=== PATIENT | female | born 1960 | race Caucasian/White ===

== ENCOUNTER 2019-12-08 16:32 | Inpatient (IN) | payer OTHER ==
[~2019-12-08] VITALS: Ht 160 cm; Wt 100.4 kg
[2019-12-08 16:40] VITALS: BP 204/116
[2019-12-08 17:13] LABS: URINE BLOOD 3+ (Negative); URINE CLARITY CLOUDY; URINE COLOR YELLOW; URINE GLUCOSE-RANDOM NEGATIVE (Negative); URINE KETONES NEGATIVE (Negative); URINE NITRITE-REFLEX NEGATIVE (Negative); URINE PROTEIN TRACE (Negative); URINE SPECIFIC GRAVITY >= 1.030 (1.005-1.030); URINE UROBILINOGEN 0.2 E.U./dl (0.2-1.0)
[2019-12-08 17:22] LABS: ICTOTEST (BILI CONFIRMATORY) Negative (Negative); URINE BILIRUBIN 1+ (Negative); URINE LEUKOCYTES-REFLEX 2+ (Negative)
[2019-12-08 17:22] LABS: ABSOLUTE BASOPHILS 0.1 thou/uL (0.0-0.2); ABSOLUTE EOSINOPHILS 0.1 thou/uL (0.0-0.7); ABSOLUTE LYMPHOCYTES 2.2 thou/uL (0.8-5.3); ABSOLUTE MONOCYTES 0.5 thou/uL (0.0-1.2); ABSOLUTE NEUTROPHILS 8.5 thou/uL (1.6-8.1); EOSINOPHILS 0.8 %; HEMATOCRIT 42.4 % (37.0-47.0); HEMOGLOBIN 14.3 gm/dL (12.0-15.0); LYMPHOCYTES 18.9 %; MCH 27.7 pg (26.0-34.0); MCHC 33.8 g/dL (28.0-37.0); MCV 82.1 fL (80.0-100.0); MONOCYTES 4.7 %; MPV 7.7 fl. (7.2-11.1); NUCLEATED RBCS 0 /100WBC; PLATELET COUNT* 276 thou/uL (150-400); POLYS 74.6 %; RBC 5.17 mil/uL (4.20-5.00); RDW-CV 13.9 % (10.5-14.5); WBC 11.4 thou/uL (4.0-11.0)
[2019-12-08 17:25] LABS: SQUAMOUS 4-10 Moderate /LPF (0-3); TRANSITIONAL EPITHEL CELL 4-10 Moderate /LPF (None Seen)
[2019-12-08 17:26] LABS: BACTERIA-REFLEX >30 Many /HPF (None Seen); CASTS None Seen /LPF (None Seen); CRYSTALS None Seen /LPF (None Seen); URINE RBC 3-10 Few /HPF (0-2); URINE WBC-REFLEX >25 Many /HPF (0-5)
[2019-12-08 17:33] LABS: CALCIUM 8.4 mg/dL (8.5-10.1); CREATININE 0.9 mg/dL (0.6-1.3); POTASSIUM 3.4 mmol/L (3.5-5.1)
[2019-12-08 17:34] LABS: APTT 27.3 Seconds (25.0-31.3); PROTIME 10.4 Seconds (9.20-11.50)
[2019-12-08 17:44] LABS: ALBUMIN 3.1 g/dL (3.4-5.0); TOTAL BILIRUBIN 0.6 mg/dL (<0.1-1.0); TOTAL PROTEIN 6.6 g/dL (6.4-8.2)
[2019-12-08 21:32] VITALS: BP 161/87
[2019-12-08 21:35] VITALS: BP 146/94
[2019-12-09] VITALS: BP 149/94
[2019-12-09 04:00] VITALS: BP 121/82
[2019-12-09 05:10] LABS: HEMATOCRIT 32.2 % (37.0-47.0); MCH 28.2 pg (26.0-34.0); MCHC 34.1 g/dL (28.0-37.0); MCV 82.5 fL (80.0-100.0); MPV 7.4 fl. (7.2-11.1); RBC 3.91 mil/uL (4.20-5.00); RDW-CV 13.7 % (10.5-14.5); WBC 11.6 thou/uL (4.0-11.0)
[2019-12-09 05:22] LABS: PROTIME 10.7 Seconds (9.20-11.50)
[2019-12-09 05:30] LABS: ALBUMIN 2.6 g/dL (3.4-5.0); CALCIUM 7.6 mg/dL (8.5-10.1); CREATININE 0.8 mg/dL (0.6-1.3); MAGNESIUM 1.7 mg/dL (1.8-2.4); PHOSPHORUS* 2.7 mg/dL (2.5-4.9); POTASSIUM 3.8 mmol/L (3.5-5.1); TROPONIN-I LEVEL 0.06 ng/mL (<0.06)
[2019-12-09 08:00] VITALS: BP 152/87
[2019-12-09 12:00] VITALS: BP 143/71
[2019-12-09 12:27] LABS: CHOLESTEROL 152 mg/dL (<200); HDL CHOLESTEROL 21 mg/dL (>40); LDL CHOLESTEROL 61 mg/dL (<100); SERUM ASSESSMENT Clear; TC:HDL 7.2 Ratio (Not establshd); TRIGLYCERIDE 354 mg/dL (<150); VLDL 71 mg/dL (<40)
--- NOTE | 2019-12-09 12:47 | EKG ---
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
[2019-12-09 16:00] VITALS: BP 182/87
[2019-12-09 20:05] VITALS: BP 164/90
[2019-12-10] VITALS: BP 141/83
[2019-12-10 04:00] VITALS: BP 159/72
[2019-12-10 08:00] VITALS: BP 150/72
[2019-12-10 12:17] VITALS: BP 162/81
[2019-12-10 14:01] VITALS: BP 162/81
[2019-12-10] MEDS ORDERED: COZAAR 25 MG TA25 M1 PO (14:01)
[2019-12-10 14:44] VITALS: BP 162/81
--- NOTE | 2019-12-11 14:10 | CON ---
[address] [address] CONSULTATION Name: DAREN RIDLEY Room: [address] IN .R.#: [id number] Admission: 12/08/19 Attend Phys: Christophe Sims Discharge: 12/10/19 Date of : 64 Report #: [id number] THIS REPORT FOR: //name// cc: Carly Cheung. Carly Rogers. CHIQUI Cruz THIS REPORT FOR: //name// CC: Carly Elder DATE OF SERVICE: 12/09/2019 REQUESTING PHYSICIAN: Quinten Peacock DO REASON FOR CONSULT: Rectal bleeding. HISTORY OF PRESENT ILLNESS: This is a 59-year-old female who was admitted with rectal bleeding overnight. The patient reports that she started having passing blood clots yesterday morning, which was very concerning for her. Since discontinued this prompted her to go to the Emergency Room. Upon ER visit, her hemoglobin initially was around 14. She did not report any abdominal pain or rectal pain with this. The patient also denies taking any NSAIDs or blood thinners. She claims that she had a colonoscopy 11 years ago, which was unremarkable. Her hemoglobin today is down to 11. ALLERGIES: SIGNIFICANT TO CODEINE. MEDICATIONS: The patient is not on any home medications. SOCIAL HISTORY: The patient lives at home. Denies tobacco or alcohol use. FAMILY HISTORY: Negative for GI malignancy. PHYSICAL EXAMINATION: VITAL SIGNS: Reveals blood pressure of 143/71, respirations 18, pulse 96, temperature 98.3. LUNGS: Clear. CARDIOVASCULAR: Regular. ABDOMEN: Soft, nontender, nondistended. Bowel sounds are positive. LABORATORY DATA: Reveal sodium of 138, potassium 3.8, BUN is 9, creatinine 0.8, glucose 131, AST is 21, ALT 25 with alkaline phosphatase of 116. Albumin is 2.6. INR is 1.0 with WBC of 11.6, hemoglobin 11 down from 14.3, platelets 246[place] [address] CONSULTATION Name: DAREN RIDLEY Room: [address] IN [facility].#: [id number] Admission: 12/08/19 Attend Phys: Christophe rodriguez [place] Discharge: 12/10/19 Date of : 64 Report #: [id number] IMAGING: CT of abdomen and pelvis was obtained in the ER. This revealed extravasation of contrast material in the cecum suggest active GI bleed at that site. There is trace amount of free fluid in the pelvis. There is also splenomegaly with 2.9 cm slightly irregular appearing low density lesion in the superior region of the spleen. ASSESSMENT AND PLAN: The patient with history of colonoscopy 11 years ago, who came in with acute GI bleed. CT suggestive of possible bleeding site of cecum. She was prepped overnight and we will perform a colonoscopy. We will make further recommendation based on finding. <ELECTRONICALLY SIGNED> By: Uriel Blanco MD 12/11/19 1410 1556 2024Uriel Blanco MD /nt
--- NOTE | 2019-12-11 15:09 | PATH ---
[address] [address] PATHOLOGY RPT PROCEDURE Name: GUERA VEGA Room: [address] IN .R.#: [id number] Admission: 12/08/19 Date of : 64 Discharge: 12/10/19 Report #: [id number] Path Case #: [id number] [facility] Accession Number: [id number] . 01 Material submitted: . PART A: appendix - FRANCI APPENDICEAL INFLAMED TISSUE PART B: colon - ASCENDING COLON POLYP. Modifiers: ascending PART C: rectosigmoid junction - RECTAL SIGMOID POLYP . 01 Clinical history: . Rectal bleeding . 02 Diagnosis: A. Periappendiceal inflamed tissue: - Mild active colitis with suggestion of chronic inflammation, negative for granulomas, viral inclusion and dysplasia. See comment. . B. Ascending colon polyp: - Tubular adenoma, negative for high-grade dysplasia. . C. Rectal sigmoid polyp: - Tubular adenoma, negative for high-grade dysplasia. (DAVEY:pit 12/11/2019) QTP 12/11/2019 1322 Local . 02 Comment: The periappendiceal inflamed tissue biopsies (A) shows benign colonic mucosa with mild active inflammation evidenced by neutrophils predominantly in the lamina propria in association with some fresh hemorrhage and a prominent lymphoid aggregate (Peyer's patch) and there is a suggestion of chronic inflammation with minimal basal lymphoplasmacytosis and some crypt disarray. Ischemic features are not apparent. These findings could be seen with use of non-steroidal anti-inflammatory agents or acute self-limited colitis and, although thought unlikely, Crohn's disease cannot be entirely excluded. (DAVEY:[facility] 12/11/2019) . 02 Electronically signed: . Thad Hernandez MD, Pathologist NPI- [id number] . 01 Gross description: . A. The specimen is received in formalin, labeled "Guera Vega, franci-appendiceal inflamed tissue" and consists of multiple fragments of sky tissue measuring measuring 1.2 x 0.5 x 0.2 cm in aggregate which are entirely submitted in A1. . B. The specimen is received in formalin, labeled "Guera Vega, [place] [address] PATHOLOGY RPT PROCEDURE Name: GUERA VEGA Room: [address] IN M.R.#: [id number] Admission: 12/08/19 Date of : 64 Discharge: 12/10/19 Report #: [id number] Path Case #: [id number] colon polyp" and consists of a fragment of pink-sky tissue measuring 0.3 x 0.3 cm which is entirely submitted in B1. . C. The specimen is received in formalin, labeled "Silvia, Guera, rectal sigmoid polyp" and consists of 4 fragments of pink-sky tissue measuring 1.3 x 0.8 x 0.5 cm a Burks which are entirely submitted in C1. (SDY; 12/10/2019) SYU/SYU 12/10/2019 1125 Local . 02 Pathologist provided ICD-10: K52.9, D12.2, D12.8 . 02 CPT . 295541, 443497, 634929 Specimen Comment: A courtesy copy of this report has been sent to [phone] Specimen Comment: [phone], Specimen Comment: Report sent to , DR NELSON / DR RUIZ Performed at: 01 [facility] [address] [facility] [address], [place], [place] [id number] MD Onofre Ovalle MD Phone: [phone] Performed at: [address] [facility] [address] [place], [place] [id number] MD Thad Hernandez MD Phone: [phone]
== END 2019-12-10 15:00 | disposition home or self-care (01) | DRG 378 ==
LOC: M.ERS 16:32 → M.2W 18:25 → M.TBA-ER 18:25 → M.2W 21:31
PROVIDERS: Emergency Medicine Emergency Medical Services; ADMIT Family Medicine
PROC: 0DBK8ZZ Excision of Ascending Colon, Via Natural or Artificial Opening Endoscopic (ICD-10-PCS; principal; 2019-12-09)
PROC: 0DBN8ZX Excision of Sigmoid Colon, Via Natural or Artificial Opening Endoscopic, Diagnostic (ICD-10-PCS; principal; 2019-12-09)
PROC: 0D5N8ZZ Destruction of Sigmoid Colon, Via Natural or Artificial Opening Endoscopic (ICD-10-PCS; principal; 2019-12-09)
DX: K57.31 Diverticulosis of large intestine without perforation or abscess with bleeding (principal); E44.1 Mild protein-calorie malnutrition; I10 Essential (primary) hypertension; E78.5 Hyperlipidemia, unspecified; E66.9 Obesity, unspecified; I16.0 Hypertensive urgency; R00.0 Tachycardia, unspecified; R16.1 Splenomegaly, not elsewhere classified; D72.0 Genetic anomalies of leukocytes; K76.0 Fatty (change of) liver, not elsewhere classified; K64.8 Other hemorrhoids; Z90.49 Acquired absence of other specified parts of digestive tract; Z88.6 Allergy status to analgesic agent; Z68.39 Body mass index [BMI] 39.0-39.9, adult; Z87.891 Personal history of nicotine dependence; Z91.14 Patient's other noncompliance with medication regimen